=== PATIENT | male | born 1955 | race Caucasian/White ===

== ENCOUNTER 2021-12-31 09:15 | Emergency (ER) | payer OTHER ==
[~2021-12-31] VITALS: Ht 175.3 cm; Wt 117.9 kg
[2021-12-31] MEDS ORDERED: CYCL10 PO (12:18)
== END 2021-12-31 12:38 | disposition home or self-care (01) ==
LOC: ER 09:15
DX: S39.012A Strain of muscle, fascia and tendon of lower back, initial encounter (principal); X58.XXXA Exposure to other specified factors, initial encounter; I10 Essential (primary) hypertension; E78.5 Hyperlipidemia, unspecified; Z79.899 Other long term (current) drug therapy; Z87.891 Personal history of nicotine dependence
CPT/HCPCS: 96372; 99283-25; J1885